=== PATIENT | male | born 1965 | race African-American/Black ===

== ENCOUNTER 2017-03-05 12:20 | Emergency (ER) | payer BC, OTHER ==
[~2017-03-05] VITALS: Ht 180.3 cm; Wt 114.1 kg
[~2017-03-05 12:20] MED LIST: BENTYL10 MG PO; CIPRO500 MG PO; IMODIUM MS REL1 EACH PO; INDOMETHACIN50 MG PO; MOBIC15 MG PO; PERCOCET 5/31 TABLET PO; TORADOL10 MG PO; ZOFRAN4 MG PO
[2017-03-05 12:39] LABS: POINT-OF-CARE METER ID UU13113778
[2017-03-05 15:04] LABS: EOSINOPHIL (%) 1.9 % (0-5); EOSINOPHIL COUNT 0.1 K/uL (0-0.3); HEMATOCRIT 41.8 % (38.0-50.0); IMMATURE GRANULOCYTE (%) 0.4 % (0.0-0.7); INSTRUMENT ABS NEUTROPHIL CT 2.5 K/uL; LYMPHOCYTE COUNT 2.7 K/uL (1.0-2.8); MCH 27.1 PG (29.0-34.0); MCHC 33.5 G/DL (30.0-36.0); MEAN PLAT.VOLUME 13.3 uM^3 (9.0-12.4); MONOCYTE (%) 5.1 % (3-12); MONOCYTE COUNT 0.3 K/uL (0-0.8); NEUTROPHIL (%) 44.3 % (45-76); NEUTROPHIL COUNT 2.5 K/uL (1.8-6.4); PLATELET COUNT 146 K/uL (156-360); RBC DIS.WIDTH-CV 12.4 % (11.8-14.6); RBC DIS.WIDTH-SD 36.4 % (39-53); RED BLOOD COUNT 5.16 M/uL (4.00-5.50); WHITE BLOOD COUNT 5.7 K/uL (4.1-10.2)
[2017-03-05 15:12] LABS: CARBON DIOXIDE (BICARBONATE) 27.9 MEQ/L (20-31)
[2017-03-05 15:15] LABS: CHLORIDE 102 mEq/L (99-109); POTASSIUM 4.2 mEq/L (3.7-5.4); SODIUM 134 mEq/L (136-147)
[2017-03-05 15:16] LABS: MAGNESIUM 2.3 mg/dL (1.3-2.7)
[2017-03-05 15:17] LABS: GLUCOSE 348 mg/dL (70-99)
[2017-03-05 15:18] LABS: ANION GAP 11 MEQ/L (2-14)
[2017-03-05 15:21] LABS: GFR ESTIMATE (CALCULATED) > 59 mL/min/ (58.99-99999); UREA NITROGEN (BUN) 17 mg/dL (9-23)
[2017-03-05 16:06] LABS: POINT-OF-CARE METER ID UU13113702
[2017-03-05 17:11] VITALS: BP 130/90
== END 2017-03-05 17:12 | disposition home or self-care (01) ==
LOC: EME 12:20
PROVIDERS: Emergency Medicine
DX: E11.65 Type 2 diabetes mellitus with hyperglycemia (principal); H53.8 Other visual disturbances
CPT/HCPCS: 80048; 82010; 82803; 82948; 83735; 85025; 93005; 99281; 99285; J7030

== ENCOUNTER 2017-09-21 12:05 | Emergency (ER) | payer BC, OTHER ==
[~2017-09-21] VITALS: Ht 180.3 cm; Wt 116.2 kg
[2017-09-21 12:31] LABS: HEMATOCRIT 41.5 % (38.0-50.0); MCH 28.3 PG (29.0-34.0); MCHC 33.7 G/DL (30.0-36.0); MCV 83.8 FL (86-99); RBC DIS.WIDTH-CV 13.2 % (11.8-14.6); RBC DIS.WIDTH-SD 40.2 % (39-53); RED BLOOD COUNT 4.95 M/uL (4.00-5.50); WHITE BLOOD COUNT 6.7 K/uL (4.1-10.2)
[2017-09-21 12:40] LABS: CHLORIDE 103 mEq/L (99-109); POTASSIUM 4.1 mEq/L (3.7-5.4); SODIUM 140 mEq/L (136-147)
[2017-09-21 12:41] LABS: GLUCOSE 140 mg/dL (70-99)
[2017-09-21 12:45] LABS: CREATININE 1.2 mg/dL (0.6-1.3); GFR ESTIMATE (CALCULATED) > 59 mL/min/ (58.99-99999)
[2017-09-21 12:46] LABS: UREA NITROGEN (BUN) 15 mg/dL (9-23)
[2017-09-21 12:52] LABS: TROP-I INTERPRETATION NEGATIVE; TROPONIN-I < 0.01 ng/mL (0.0-0.30)
[2017-09-21 13:30] LABS: PLAT.SUFFICIENCY ADEQUATE; PLATELET COUNT 184 K/uL (156-360)
[2017-09-21 15:34] LABS: TROP-I INTERPRETATION NEGATIVE; TROPONIN-I < 0.01 ng/mL (0.0-0.30)
[2017-09-21 15:58] VITALS: BP 129/83
== END 2017-09-21 15:59 | disposition home or self-care (01) ==
LOC: EME 12:05
PROVIDERS: Nurse Practitioner Family
DX: R07.9 Chest pain, unspecified (principal); R03.0 Elevated blood-pressure reading, without diagnosis of hypertension; E78.5 Hyperlipidemia, unspecified; E11.9 Type 2 diabetes mellitus without complications
CPT/HCPCS: 71046; 80048; 84484; 85027; 93005; 99281; 99283